=== PATIENT | male | born 1990 | race Two or more races ===

== ENCOUNTER 2020-01-15 12:04 | Outpatient (CLI) | payer OTHER | END 2020-01-15 23:59 | disposition home or self-care (01) | LOC: CARD 12:04 → RAD 23:59 | PROVIDERS: ATTEND Orthopaedic Surgery | DX: J45.909 Unspecified asthma, uncomplicated (principal); R07.9 Chest pain, unspecified | CPT/HCPCS: 71046; 94060 ==